=== PATIENT | female | born 1935 ===

== ENCOUNTER 2021-11-21 19:15 | Inpatient (IN) | payer MEDICARE, OTHER, SELFPAY ==
[2021-11-21] VITALS (11 sets, daily range): BP systolic 128–155; BP diastolic 68–90; PULSE 82–110; RESP 16–27; TEMP 37.1; O2SAT 92–96
--- NOTE | ~2021-11-21 | XR_ITS ---
EXAMINATION: XR chest 1V portable Exam Date/Time: 11/21/2021 19:57 CDT HISTORY: possible aspiration, unresponsive Comparison: 06/22/2013. RESULT: Lines, tubes, and devices: Cardiac valve replacement. Abandoned epicardial pacing wires.. Lungs and pleura: Right upper lung scarring. Left lower lobe coarse interstitial opacities, with vol ume loss and with tenting of the diaphragm. Otherwise clear. Cardiomediastinal silhouette: Stable cardiomediastinal silhouette. Other: No acute osseous or upper abdominal finding. IMPRESSION: Left lower lobe findings felt to be more consistent with atelectasis/scarring. Aspiration is not excl uded. Reviewed, dictated and finalized at location K. IMPRESSION: Left lower lobe findings felt to be more consistent with atelectasis/scarring. Aspiration is not excluded.
--- NOTE | ~2021-11-21 | XR_ITS ---
EXAMINATION: XR chest 1V portable DATE: 11/24/2021 13:03 INDICATION: Shortness of breath. TECHNIQUE: A single frontal view of the chest was obtained. COMPARISON: Chest single view 11/21/2021, CT abdomen and pelvis 11/22/2021 FINDINGS: Again seen is mild elevation of right left hemidiaphragm. There is mild atelectasis at left lung base. There is mild scarring in right midlung zone. No pleural effusion or pneumothorax. Cardio megaly is noted. There are changes of heart valve replacement. Retained epicardial pacer wires are no barbara. There are surgical clips in right chest. IMPRESSION: 1. Stable mild scarring in right midlung zone and mild atelectasis at left lung base. 2. Cardiomegaly. Reviewed, dictated and finalized at location A.
--- NOTE | ~2021-11-21 | CT_ITS ---
EXAMINATION: CT abdomen pelvis w con DATE: 11/22/2021 00:13 INDICATION: Urinary tract infection presenting with nausea and vomiting TECHNIQUE: Computed tomography (CT) of the abdomen and pelvis was performed with 75 mL Omnipaque-300 intravenous contrast. Automated exposure control and iterative reconstruction technique were employed . The dose-length product was 807.07 mGy-cm. COMPARISON: None FINDINGS: Mild bronchial dilation with wall thickening and patchy groundglass opacities in the bilateral lower lobes which could represent aspiration or pneumonia. Cardiomegaly with marked right atrial enlargemen t. Mitral valve repair. No pericardial or pleural effusion. Cholecystectomy clips the gallbladder fossa. Small amount of focal hepatic steatosis at the ligamentu m teres. A few splenic calcifications consistent with old granulomatous disease. Pancreas, bilateral adrenal glands and kidneys are normal. No urolithiasis, hydronephrosis or pyelonephritis. There is mi ld colonic diverticulosis with a sigmoid predominance. There is no adjacent inflammatory change to s uggest diverticulitis. There appears be some wall thickening at the anus, rectum and distal sigmoid c olon consistent with proctocolitis. Small bowel and appendix are normal. The uterus is not identified and has likely been surgically resected. There is mild wall thickening of the bladder which is decom pressed around a Schultz catheter. No free intraperitoneal gas or fluid. No pathologically enlarged abdominal or pelvic lymphadenopathy. Likely bipolar type right hip hemiarthroplasty. There is some heterotopic ossification about the rig ht hip and in the left obturator region. Multiple surgical clips at the groin bilaterally likely rela barbara to prior vascular surgery. 30 degrees thoracolumbar scoliosis with moderate spondylosis. Chronic appearing compression fractures at T12 and L2 with 20% anterior vertebral body height loss at the for black and 40% central vertebral body height loss at the latter. There are bridging osteophytes at multi ple levels in the lower thoracic spine, consistent with diffuse idiopathic skeletal hyperostosis (DIS H). IMPRESSION: 1. Bronchial wall thickening and patchy ground glass opacities in the bilateral lower lobes which cou ld represent aspiration or pneumonia. 2. Wall thickening at the anus, rectum and distal sigmoid colon consistent with a proctocolitis which could be infectious, inflammatory or less likely ischemic in etiology. 3. Bladder wall thickening which could be related to decompressed state with a Schultz catheter in plac e and/or cystitis given the history of urinary tract infection. 4. Thyromegaly with marked right atrial enlargement. Reviewed, dictated and finalized at location A. IMPRESSION: 1. Bronchial wall thickening and patchy ground glass opacities in the bilateral lower lobes which could represent aspiration or pneumonia. 2. Wall thickening at the anus, rectum and distal sigmoid colon consistent with a proctocolitis which could be infectious, inflammatory or less likely ischemi c in etiology. 3. Bladder wall thickening which could be related to decompressed state with a Schultz catheter in place and/or cystitis given the history of urinary tract infe ction. 4. Thyromegaly with marked right atrial enlargement.
--- NOTE | ~2021-11-21 | XR_ITS ---
EXAMINATION: XR barium swallow modified DATE: 11/25/2021 08:40 INDICATION: Aspiration pneumonia. TECHNIQUE: The patient was given barium-containing material of multiple consistencies to swallow by t marnie speech pathologist while I performed fluoroscopy. Fluoroscopy exposure time was 2.0 minutes. The n umber of fluoroscopy images saved to the PACS was 1. Dose-area product was 1.538 Gy-cm^2. FINDINGS: There was decreased lingual movement. There was reduced laryngeal elevation. There was vallecular res idue and laryngeal penetration. No aspiration. IMPRESSION: 1. Laryngeal penetration. No aspiration. 2. Please refer to the speech therapy report for recommendations. Reviewed, dictated and finalized at location A.
--- NOTE | ~2021-11-21 | CT_ITS ---
EXAMINATION: CT brain wo con DATE: 11/21/2021 21:40 INDICATION: unresponsive, AFIB on coumadin . TECHNIQUE: Computed tomography (CT) of the head was performed without intravenous contrast. The mA wa s adjusted according to patient size. Iterative reconstruction technique was employed. The dose-lengt h product was 605.33 mGy-cm. COMPARISON: 03/01/13 FINDINGS: No acute intracranial hemorrhage or extra-axial fluid collection. No hydrocephalus, mass, or herniation. No acute ischemic infarct. Unremarkable dural venous sinus attenuation. No acute osseous abnormality. The aerated spaces are clear. Severe atrophy and severe chronic white matter change. Atherosclerotic intracranial calcifications. IMPRESSION: No acute intracranial process. Reviewed, dictated and finalized at location K.
--- NOTE | 2021-11-21 19:53 | ECG_ITS ---
Measurements Intervals [place] Rate: 83 P: NH: 0 QRS: 21 QRSD: 89 T: 45 QT: 398 QTc: 470 Interpretive Statements ATRIAL FIBRILLATION VENTRICULAR PREMATURE COMPLEX INCOMPLETE RIGHT BUNDLE BRANCH BLOCK DELAYED PRECORDIAL R/S TRANSITION ABNORMAL ECG Electronically Signed On 11-22-2021 7:53:20 CDT by Michael Ward D.O.
--- NOTE | 2021-11-21 19:55 | ED.GENADULT ---
HPI - General Adult General Chief complaint: Shortness of Breath/Dyspnea <Michaelle Daniels PA-C - Last Filed: 11/22/21 01:16> Stated complaint: aspiration <JESSICA Snyder Last Filed: 11/22/21 01:16> Source: family, EMS and old records reviewed <JESSICA Snyder Last Filed: 11/22/21 01:16> Mode of arrival: EMS <JESSICA Snyder Last Filed: 11/22/21 01:16> Limitations: clinical condition <JESSICA Snyder Last Filed: 11/22/21 01:16> History of Present Illness HPI narrative: Patient is an 86-year-old female who presents to the ED via EMS with report of possible aspiration. Patient is a resident of [facility] and is bedbound at baseline. Daughter at bedside assisted in providing some information. Per daughter and jail report, patient was thought to have possibly aspirated on her liquid Ensure tonight at dinner. She began coughing after drinking it. EMS was called. Upon EMS arrival, she had 2 episodes of emesis. Patient is normally A&O x1 at baseline and is only sometimes able to talk. Daughter does report she typically recognizes her and will perk up and speak to her. Patient is currently unresponsive in ED bed, but is breathing on her own with SaO2 96% on RA. Patient does have a history of atrial fibrillation and is on Coumadin. Daughter denies any known falls. <JESSICA Snyder Last Filed: 11/22/21 01:16> Related Data Home medications: Home Medications Medication Instructions Recorded Confirmed acetaminophen 1,000 mg PO TID 11/22/21 11/22/21 atorvastatin 40 mg PO DAILY 11/22/21 11/22/21 baclofen 5 mg PO TID 11/22/21 11/22/21 cholecalciferol (vitamin D3) 125 mcg PO DAILY 11/22/21 11/22/21 docusate sodium [DOK] 100 mg PO BID 11/22/21 11/22/21 donepezil 10 mg PO HS 11/22/21 11/22/21 duloxetine 20 mg PO DAILY 11/22/21 11/22/21 loratadine 10 mg PO DAILY 11/22/21 11/22/21 melatonin 5 mg PO HS 11/22/21 11/22/21 memantine 10 mg PO BID 11/22/21 11/22/21 metoprolol tartrate 100 mg PO BID 11/22/21 11/22/21 nystatin 1 applic TOPICAL BID 11/22/21 11/22/21 omeprazole 20 mg PO DAILY 11/22/21 11/22/21 polyethylene glycol 3350 17 g PO DAILY 11/22/21 11/22/21 sennosides [senna] 8.6 mg PO DAILY 11/22/21 11/22/21 tramadol 50 mg PO Q8H PRN 11/22/21 11/22/21 vit A,C and K-rwbdoc-meningre 300 tablet PO DAILY 11/22/21 11/22/21 [I-Prem] warfarin 2.5 mg PO DAILY 11/22/21 11/22/21 <Michaelle Daniels PA-C - Last Filed: 11/22/21 01:16> Allergies/adverse reactions: Allergies Allergy/AdvReac Type Severity Reaction Status Date / Time adhesive tape Allergy Intermediate Itching Verified 06/19/13 18:55 amiodarone Allergy Verified 06/19/13 18:55 pravastatin Allergy Verified 06/19/13 18:55 <Michaelle Daniels PA-C - Last Filed: 11/22/21 01:16> Review of Systems Review of Systems: RESPIRATORY: Reports cough and possible aspiration. GASTROINTESTINAL: Reports vomiting. <Michaelle Daniels PA-C - Last Filed: 11/22/21 01:16> ROS unobtainable: Yes unobtainable due to medical condition <Michaelle Daniels PA-C - Last Filed: 11/22/21 01:16> [facility] Past Medical History Medical History: Medical History (Updated 11/22/21 @ 01:10 by Michaelle Daniels PA-C) Alzheimer's dementia Anxiety Atrial fibrillation CKD (chronic kidney disease) Contracture, left hand Depression GERD (gastroesophageal reflux disease) History of CVA (cerebrovascular accident) Hyperlipidemia Hypertension Iron deficiency anemia <Michaelle Daniels PA-C - Last Filed: 11/22/21 01:16> Surgical History Surgical History: Surgical History (Updated 11/21/21 @ 21:17 by Michaelle Daniels PA-C) History of prosthetic heart valve <Michaelle Daniels PA-C - Last Filed: 11/22/21 01:16> Social History Social History: Social History (Updated 11/21/21 @ 21:17 by Michaelle Daniels PA-C) Smoking status: Never smoker Alcohol intake: never Substance use: never Substance use typ
[2021-11-21 20:23] LABS: Basophils Percent Auto 0.3 % (0.2-1.2); Eosinophils Percent Auto 0.3 % (0-4.4); Hematocrit 46.5 % (37.0-47.0); Hemoglobin 14.7 g/dL (12.0-15.0); Immature Granulocyte Absolute 0.03 K/mm3 (0.00-0.031); Immature Granulocyte Percent A 0.4 % (0-0.5); Lymphocytes Absolute Auto 1.09 K/mm3 (0.9-3.2); Lymphocytes Percent Auto 14.9 % (18.3-44.2); Mean Corpuscular HGB Conc 31.6 g/dl (32-36); Mean Corpuscular Volume 101.1 fl (80-100); Mean Platelet Volume 12.4 fl (7.4-10.4); Monocytes Absolute Auto 0.4 K/mm3 (0.1-0.6); Monocytes Percent Auto 5.2 % (2.6-8.5); Neutrophils Absolute Auto 5.8 K/mm3 (1.3-6.7); Neutrophils Percent Auto 78.9 % (45.5-73.1); Platelet Count Result 166 k/mm3 (150-375); Red Cell Distribution Width 14.8 % (11.5-14.5); White Blood Count 7.3 K/mm3 (4.5-10.0)
[2021-11-21 20:32] LABS: Alveolar/Arterial O2 Gradient 37.3 mmHg; Base Excess ABG -0.2 mEq/l (+/-2.0); Fractional Inspired Oxygen 21 %; HCO3 ABG 24.5 mEq/l (22.0-26.0); Oxygen Content ABG 19.6 %vol (16.0-22.0); Oxygen Saturation ABG 92.5 % (95.0-100.0); Oxyhemoglobin 91.8 % THb (90.0-100.0); PCO2 ABG 40.5 mmHg (35.0-45.0); PO2 ABG 63.9 mmHg (80.0-100.0); PO2 FiO2 Ratio Arterial Blood 3.04 %; Total Hemoglobin 15.2 g/dL (12.0-18.0)
[2021-11-21 20:33] LABS: Device ROOM AIR; Modified Allen's Test Unable to perform; Site Drawn RIGHT RADIAL
[2021-11-21 20:35] LABS: Alanine Aminotransferase 16 U/L (6-35); Alkaline Phosphatase 129 U/L (38-126); Anion Gap 4 mmol/L (8-16); Aspartate Amino Transferase 42 U/L (14-36); Bilirubin,Total 0.6 mg/dL (0.2-1.3); Blood Urea Nitrogen 25 mg/dL (7-17); Calcium 9.3 mg/dL (8.4-10.2); Carbon Dioxide 33 mmol/L (22-30); Chloride 102 mmol/L (98-107); Estimated Glomerular Filt Rate 59; Glucose 130 mg/dL (65-110); INR 3.7; Potassium 4.3 mmol/L (3.4-5.0); Prothrombin Time 35.5 Seconds (11.1-14.7); Sodium 139 mmol/L (137-145)
[2021-11-21 20:36] LABS: Partial Thromboplastin Time 53.9 SECONDS (22.3-36.8)
[2021-11-21 20:47] LABS: NT Pro B Type Natriuretic Pept 1490 pg/mL (5-100); Troponin I 0.013 ng/mL (0.000-0.034)
[2021-11-21 21:44] LABS: Lactic Acid Reflex 1.8 mmol/L (0.7-2.0)
[2021-11-21 22:27] LABS: Appearance Urine Cloudy (Clear); Bilirubin Urine Negative (Negative); Blood Urine 3+ (Negative); Color Urine Yellow (Yellow); Glucose Urine UA Negative (Negative); Ketones Urine Negative (Negative); Leukocyte Esterase Ur 1+ LEU/UL (Negative); Nitrate Urine Negative (Negative); Protein Urine 2+ mg/dL (Negative); Specific Grav Ur >= 1.030 (1.001-1.035); pH Urine 5.5 (5.0-9.0)
[2021-11-21 22:34] LABS: Mucus Urine Moderate /lpf; RBC Urine >75 /hpf (0-2); Squamous Epithelial Cell Urine Many /hpf (Few); WBC Clumps Urine Present /HPF; WBC Urine >75 /hpf
[2021-11-21 22:53] LABS: Add Urine Microscopic? YES
[2021-11-21 23:05] LABS: Glucose Point of Care 161 mg/dl (65-105)
--- NOTE | 2021-11-21 23:40 | PM.IMHP ---
H&P: HPI History of Present Illness Date/Time: 11/21/21 23:40 Chief Complaint: Altered mental status. Narrative: This is an 86-year-old female who resides at alf facility patient with past medical history significant for dementia, gastroesophageal reflux disease, chronic constipation, atrial fibrillation, rate controlled, anticoagulated, was brought to the emergency room for evaluation after concerns for her altered mental status been unresponsive a total change from her usual self, most of the history has been obtained from daughter who is at bedside. According to daughter patient had several episodes of nausea and vomiting with choking, and was not responding to her. Patient had been in her usual state of health up until this moment. Preliminary workup was significant for urine analysis with numerous WBCs present, chest x-ray with left lower lobe infiltrate. Patient is being admitted for further did evaluation management and treatment. Review of Systems Review of Systems: ROS unobtainable: Yes unobtainable due to medical condition and unobtainable due to mental status (Obtundation) PMFSH Past Medical History Medical History (Updated 11/22/21 @ 01:10 by Michaelle Daniels PA-C) Alzheimer's dementia Anxiety Atrial fibrillation CKD (chronic kidney disease) Contracture, left hand Depression GERD (gastroesophageal reflux disease) History of CVA (cerebrovascular accident) Hyperlipidemia Hypertension Iron deficiency anemia Surgical History Surgical History (Updated 11/21/21 @ 21:17 by Michaelle Daniels PA-C) History of prosthetic heart valve Social History Social History (Updated 11/21/21 @ 21:17 by Michaelle Daniels PA-C) Smoking status: Never smoker Alcohol intake: never Substance use: never Substance use type: does not use Living arrangements: alf Spiritual care concerns: No Meds Home Medications and Allergies Home Medications Medication Instructions Recorded Confirmed Type acetaminophen 1,000 mg PO TID 11/22/21 11/22/21 History atorvastatin 40 mg PO DAILY 11/22/21 11/22/21 History baclofen 5 mg PO TID 11/22/21 11/22/21 History cholecalciferol (vitamin D3) 125 mcg PO DAILY 11/22/21 11/22/21 History docusate sodium [DOK] 100 mg PO BID 11/22/21 11/22/21 History donepezil 10 mg PO HS 11/22/21 11/22/21 History duloxetine 20 mg PO DAILY 11/22/21 11/22/21 History loratadine 10 mg PO DAILY 11/22/21 11/22/21 History melatonin 5 mg PO HS 11/22/21 11/22/21 History memantine 10 mg PO BID 11/22/21 11/22/21 History metoprolol tartrate 100 mg PO BID 11/22/21 11/22/21 History nystatin 1 applic TOPICAL BID 11/22/21 11/22/21 History omeprazole 20 mg PO DAILY 11/22/21 11/22/21 History polyethylene glycol 3350 17 g PO DAILY 11/22/21 11/22/21 History sennosides [senna] 8.6 mg PO DAILY 11/22/21 11/22/21 History tramadol 50 mg PO Q8H PRN 11/22/21 11/22/21 History vit A,C and H-ovevwz-dswdojlr 300 tablet PO DAILY 11/22/21 11/22/21 History [I-Prem] warfarin 2.5 mg PO DAILY 11/22/21 11/22/21 History Allergies Allergy/AdvReac Type Severity Reaction Status Date / Time adhesive tape Allergy Intermediate Itching Verified 06/19/13 18:55 amiodarone Allergy Verified 06/19/13 18:55 pravastatin Allergy Verified 06/19/13 18:55 Vital Signs Vital Signs - 24 hr 11/21/21 19:32 11/21/21 19:38 11/21/21 21:32 Temperature 98.7 F Pulse Rate 85 82 Respiratory Rate 19 16 Blood Pressure 155/90 H 139/74 Pulse Oximetry 95 95 96 Exam Const: General: comfortable, no acute distress, well developed, ill appearing acutely and patient obtunded Nutritional Appearance: average body habitus Orientation/consciousness: patient obtunded HENMT: Head: normal to inspection, normocephalic and atraumatic Ears: hearing grossly normal bilaterally General nose exam: Normal external nose present Face and sinus: normal facial exam Mouth: Yes dry mucous membranes Eyes: General: appearance normal, both eyes and all r
[2021-11-22] VITALS (13 sets, daily range): BP systolic 106–161; BP diastolic 57–99; PULSE 72–114; RESP 12–28; TEMP 36.5–37.5; O2SAT 90–100
[2021-11-22 00:56] LABS: SARS-CoV-2 RNA PCR Negative
--- NOTE | 2021-11-22 01:35 | PC.NURSE ---
Before patient was taken up to the floor she was cleaned up by this RN and Chetan guerra
--- NOTE | 2021-11-22 01:40 | PC.NURSE ---
THis RN was just informed about getting a room for patient at 0138 [facility] sent immediately.
[2021-11-22] MEDS: ONDANSETRON INJ 4 MG/2 ML VIAL IV PUSH (01:50)
--- NOTE | 2021-11-22 02:01 | PC.NURSE ---
This RN sent patient upstairs with fluids still running.
--- NOTE | 2021-11-22 02:21 | PC.NURSE ---
This patient, Anjali Huffman, was admitted to [facility] Surg Room 332-01. Patient/family oriented to hospital policies and general routines including ID bracelet, bed and alarms, visiting hours, pain management, procedures, bathroom and other care routines, personal items, smoking policy, room service/diet, and visiting hours. Information on how to activate the Rapid Response Team has been discussed. Patient/Family are encouraged to report perceived risks to care and to ask questions if they do not understand what they are told or what they should do.
--- NOTE | 2021-11-22 13:16 | PM.IMPN ---
Progress Note: A&P Assessment and Plan (1) Urinary tract infection: Qualifiers: Hematuria presence: with hematuria Urinary tract infection type: acute cystitis Qualified Code(s): N30.01 - Acute cystitis with hematuria Code(s): N39.0 - Urinary tract infection, site not specified Status: Acute Assessment and Plan: Patient has been started on broad-spectrum antibiotics. Await cultures Deescalate antibiotics as needed Supportive care (2) Altered mental status: Qualifiers: Altered mental status type: unspecified Qualified Code(s): R41.82 - Altered mental status, unspecified Code(s): R41.82 - Altered mental status, unspecified Status: Acute Assessment and Plan: CT head is negative Likely secondary to urinary tract infection/pneumonia/colitis ABG without hypercapnia Lactate normal Supportive care Continue to monitor (3) Aspiration into lower respiratory tract: Qualifiers: Encounter type: initial encounter Qualified Code(s): T17.800A - Unspecified foreign body in other parts of respiratory tract causing asphyxiation, initial encounter Code(s): T17.800A - Unspecified foreign body in other parts of respiratory tract causing asphyxiation, initial encounter Status: Acute Assessment and Plan: Patient is on broad-spectrum antibiotics CT abdomen and pelvis revealed peribronchial thickening and ground-glass opacities in the lower lobe Blood cultures in progress On vancomycin and Zosyn (4) GERD (gastroesophageal reflux disease): Code(s): K21.9 - Gastro-esophageal reflux disease without esophagitis Status: Acute Assessment and Plan: PPI as needed (5) CKD (chronic kidney disease): Code(s): N18.9 - Chronic kidney disease, unspecified Status: Acute Assessment and Plan: Continue to monitor (6) Atrial fibrillation: Code(s): I48.91 - Unspecified atrial fibrillation Status: Acute Assessment and Plan: Rate controlled and anticoagulated INR 3.7 (7) Alzheimer's dementia: Code(s): G30.9 - Alzheimer's disease, unspecified; F02.80 - Dementia in other diseases classified elsewhere without behavioral disturbance Status: Acute Assessment and Plan: Continue memantine (8) Colitis: Code(s): K52.9 - Noninfective gastroenteritis and colitis, unspecified Status: Acute Assessment and Plan: Involving descending and sigmoid colon infectious or inflammatory On IV antibiotics Subjective Date/time seen: 11/22/21 13:16 Interval history: HPI:This is an 86-year-old female who resides at assisted facility patient with past medical history significant for dementia, gastroesophageal reflux disease, chronic constipation, atrial fibrillation, rate controlled, anticoagulated, was brought to the emergency room for evaluation after concerns for her altered mental status been unresponsive a total change from her usual self, most of the history has been obtained from daughter who is at bedside. According to daughter patient had several episodes of nausea and vomiting with choking, and was not responding to her. Patient had been in her usual state of health up until this moment. Preliminary workup was significant for urine analysis with numerous WBCs present, chest x-ray with left lower lobe infiltrate. Patient is being admitted for further did evaluation management and treatment. 11/03 08/25 patient family at bedside. Patient lethargic. Opens her eyes on verbal commands. Not able to follow commands. She smiled to her family which is improvement to some extent. She choked on her drink yesterday evening. Remains afebrile Review of Systems Review of Systems: ROS unobtainable: Yes unobtainable due to medical condition Exam Narrative: GENERAL: The patient is sin built, lethargic, minimally responsive not in acute distress HEENT: Nonicteric sclerae, PERRLA, EOMI. Oropharynx cl
--- NOTE | 2021-11-22 14:43 | PCSTNOTE ---
Attempted Bedside Swallow Evaluation, patient would not arouse. Family was present, communicated that the patient typically consumes a diet of mildly thick liquids (level 2) and either minced and moist or puree (level 4 or 5) at her SNF. History includes 1 massive stroke, and multiple mini strokes per family report. Family is agreeable to a MBS to determine swallow function if deemed necessary after bedside swallow evaluation. Will attempt tomorrow.
[2021-11-22] MEDS: SODIUM CHLORIDE 0.9% IV 1,000 ML 75 ML IV CONT (15:01)
[2021-11-23] VITALS (8 sets, daily range): BP systolic 123–167; BP diastolic 90–95; PULSE 62–115; RESP 17–20; TEMP 36.3–37.1; O2SAT 91–96
[2021-11-23] MEDS: SODIUM CHLORIDE 0.9% IV 1,000 ML 75 ML IV CONT ×2 (02:55→17:24)
[2021-11-23 07:49] LABS: Basophils Percent Auto 0.4 % (0.2-1.2); Eosinophils Absolute Auto 0.3 K/mm3 (0-0.3); Eosinophils Percent Auto 2.7 % (0-4.4); Hemoglobin 13.6 g/dL (12.0-15.0); Immature Granulocyte Absolute 0.04 K/mm3 (0.00-0.031); Immature Granulocyte Percent A 0.4 % (0-0.5); Lymphocytes Percent Auto 23.6 % (18.3-44.2); Mean Corpuscular HGB Conc 31.6 g/dl (32-36); Mean Corpuscular Hemoglobin 32.1 pg (26-34); Mean Corpuscular Volume 101.4 fl (80-100); Mean Platelet Volume 11.9 fl (7.4-10.4); Monocytes Absolute Auto 1.2 K/mm3 (0.1-0.6); Monocytes Percent Auto 12.2 % (2.6-8.5); Neutrophils Absolute Auto 5.9 K/mm3 (1.3-6.7); Neutrophils Percent Auto 60.7 % (45.5-73.1); Platelet Count Result 162 k/mm3 (150-375); Red Blood Count 4.24 M/mm3 (4.2-5.4); Red Cell Distribution Width 14.8 % (11.5-14.5); White Blood Count 9.7 K/mm3 (4.5-10.0)
[2021-11-23 07:59] LABS: Alanine Aminotransferase 13 U/L (6-35); Albumin Level 3.5 g/dL (3.5-5.1); Alkaline Phosphatase 103 U/L (38-126); Anion Gap 4 mmol/L (8-16); Aspartate Amino Transferase 30 U/L (14-36); Bilirubin,Total 0.8 mg/dL (0.2-1.3); Blood Urea Nitrogen 22 mg/dL (7-17); Carbon Dioxide 29 mmol/L (22-30); Chloride 105 mmol/L (98-107); Estimated Glomerular Filt Rate 59; Glucose 95 mg/dL (65-110); Magnesium 2.2 mg/dL (1.6-2.3); Potassium 3.9 mmol/L (3.4-5.0); Sodium 138 mmol/L (137-145)
[2021-11-23 08:45] LABS: INR 4.4; Prothrombin Time 40.7 Seconds (11.1-14.7)
--- NOTE | 2021-11-23 12:09 | PCSTNOTE ---
Please refer to the Bedside Swallow Evaluation in the EMR. Please note, silent aspiration cannot be ruled out at bedside.
--- NOTE | 2021-11-23 12:32 | PM.IMPN ---
Progress Note: A&P Assessment and Plan (1) Urinary tract infection: Qualifiers: Hematuria presence: with hematuria Urinary tract infection type: acute cystitis Qualified Code(s): N30.01 - Acute cystitis with hematuria Code(s): N39.0 - Urinary tract infection, site not specified Status: Acute Assessment and Plan: Patient has been started on broad-spectrum antibiotics. Await cultures Deescalate antibiotics as needed Supportive care (2) Altered mental status: Qualifiers: Altered mental status type: unspecified Qualified Code(s): R41.82 - Altered mental status, unspecified Code(s): R41.82 - Altered mental status, unspecified Status: Acute Assessment and Plan: CT head is negative Likely secondary to urinary tract infection/pneumonia/colitis ABG without hypercapnia Lactate normal Supportive care Continue to monitor. Slowly improved (3) Aspiration into lower respiratory tract: Qualifiers: Encounter type: initial encounter Qualified Code(s): T17.800A - Unspecified foreign body in other parts of respiratory tract causing asphyxiation, initial encounter Code(s): T17.800A - Unspecified foreign body in other parts of respiratory tract causing asphyxiation, initial encounter Status: Acute Assessment and Plan: Patient is on broad-spectrum antibiotics CT abdomen and pelvis revealed peribronchial thickening and ground-glass opacities in the lower lobe Blood cultures in progress On vancomycin and Zosyn (4) GERD (gastroesophageal reflux disease): Code(s): K21.9 - Gastro-esophageal reflux disease without esophagitis Status: Acute Assessment and Plan: PPI as needed (5) CKD (chronic kidney disease): Code(s): N18.9 - Chronic kidney disease, unspecified Status: Acute Assessment and Plan: Continue to monitor (6) Atrial fibrillation: Code(s): I48.91 - Unspecified atrial fibrillation Status: Acute Assessment and Plan: Rate controlled and anticoagulated INR 3.7 on admission Under still at 4.4 continue to hold Coumadin (7) Alzheimer's dementia: Code(s): G30.9 - Alzheimer's disease, unspecified; F02.80 - Dementia in other diseases classified elsewhere without behavioral disturbance Status: Acute Assessment and Plan: Continue memantine (8) Colitis: Code(s): K52.9 - Noninfective gastroenteritis and colitis, unspecified Status: Acute Assessment and Plan: Involving descending and sigmoid colon infectious or inflammatory On IV antibiotics (9) Dysphagia: Code(s): R13.10 - Dysphagia, unspecified Status: Acute Assessment and Plan: speech therapy evaluated. Aspiration episode prior to admission Subjective Date/time seen: 11/23/21 12:32 Interval history: HPI:This is an 86-year-old female who resides at [facility] facility patient with past medical history significant for dementia, gastroesophageal reflux disease, chronic constipation, atrial fibrillation, rate controlled, anticoagulated, was brought to the emergency room for evaluation after concerns for her altered mental status been unresponsive a total change from her usual self, most of the history has been obtained from daughter who is at bedside. According to daughter patient had several episodes of nausea and vomiting with choking, and was not responding to her. Patient had been in her usual state of health up until this moment. Preliminary workup was significant for urine analysis with numerous WBCs present, chest x-ray with left lower lobe infiltrate. Patient is being admitted for further did evaluation management and treatment. patient family at bedside. Patient lethargic. Opens her eyes on verbal commands. Not able to follow commands. She smiled to her family which is improvement to some extent. She choked on her drink yesterday evening. Remains afebrile 05
[2021-11-23] MEDS: polyethylene glycoL 3350 17 GM POWD.PACK PO (15:38)
[2021-11-24] VITALS (10 sets, daily range): BP systolic 147–157; BP diastolic 90–107; PULSE 80–120; RESP 18–26; TEMP 36.7–37.1; O2SAT 95–97
[2021-11-24] MEDS: SODIUM CHLORIDE 0.9% IV 1,000 ML 75 ML IV CONT (08:11)
[2021-11-24 08:18] LABS: Basophils Absolute Auto 0.1 K/mm3 (0.0-0.1); Basophils Percent Auto 0.4 % (0.2-1.2); Eosinophils Absolute Auto 0.6 K/mm3 (0-0.3); Eosinophils Percent Auto 5.8 % (0-4.4); Hematocrit 42.9 % (37.0-47.0); Hemoglobin 13.1 g/dL (12.0-15.0); Immature Granulocyte Absolute 0.04 K/mm3 (0.00-0.031); Immature Granulocyte Percent A 0.4 % (0-0.5); Lymphocytes Absolute Auto 2.51 K/mm3 (0.9-3.2); Lymphocytes Percent Auto 22.6 % (18.3-44.2); Mean Corpuscular HGB Conc 30.5 g/dl (32-36); Mean Corpuscular Hemoglobin 31.6 pg (26-34); Mean Corpuscular Volume 103.6 fl (80-100); Mean Platelet Volume 11.9 fl (7.4-10.4); Monocytes Absolute Auto 1.2 K/mm3 (0.1-0.6); Monocytes Percent Auto 11.2 % (2.6-8.5); Neutrophils Absolute Auto 6.6 K/mm3 (1.3-6.7); Neutrophils Percent Auto 59.6 % (45.5-73.1); Platelet Count Result 170 k/mm3 (150-375); Red Blood Count 4.14 M/mm3 (4.2-5.4); Red Cell Distribution Width 14.6 % (11.5-14.5); White Blood Count 11.1 K/mm3 (4.5-10.0)
[2021-11-24 08:24] LABS: Chloride 104 mmol/L (98-107)
[2021-11-24 08:28] LABS: INR 3.5; Prothrombin Time 34.1 Seconds (11.1-14.7)
[2021-11-24 08:29] LABS: Alanine Aminotransferase 14 U/L (6-35); Albumin Level 3.7 g/dL (3.5-5.1); Alkaline Phosphatase 111 U/L (38-126); Anion Gap 8 mmol/L (8-16); Aspartate Amino Transferase 36 U/L (14-36); Blood Urea Nitrogen 17 mg/dL (7-17); Carbon Dioxide 27 mmol/L (22-30); Estimated Glomerular Filt Rate > 60; Glucose 72 mg/dL (65-110); Magnesium 1.9 mg/dL (1.6-2.3); Potassium 3.1 mmol/L (3.4-5.0); Sodium 139 mmol/L (137-145)
--- NOTE | 2021-11-24 11:45 | PM.IMPN ---
Progress Note: A&P Assessment and Plan (1) Urinary tract infection: Qualifiers: Hematuria presence: with hematuria Urinary tract infection type: acute cystitis Qualified Code(s): N30.01 - Acute cystitis with hematuria Code(s): N39.0 - Urinary tract infection, site not specified Status: Acute Assessment and Plan: Patient has been started on broad-spectrum antibiotics vancomycin and Zosyn Blood culture negative x2 Urine culture reviewed Deescalate antibiotics as needed Supportive care (2) Altered mental status: Qualifiers: Altered mental status type: unspecified Qualified Code(s): R41.82 - Altered mental status, unspecified Code(s): R41.82 - Altered mental status, unspecified Status: Acute Assessment and Plan: CT head is negative Likely secondary to urinary tract infection/pneumonia/colitis ABG without hypercapnia Lactate normal Supportive care Continue to monitor. Slowly improved (3) Aspiration into lower respiratory tract: Qualifiers: Encounter type: initial encounter Qualified Code(s): T17.800A - Unspecified foreign body in other parts of respiratory tract causing asphyxiation, initial encounter Code(s): T17.800A - Unspecified foreign body in other parts of respiratory tract causing asphyxiation, initial encounter Status: Acute Assessment and Plan: Patient is on broad-spectrum antibiotics CT abdomen and pelvis revealed peribronchial thickening and ground-glass opacities in the lower lobe Blood cultures in progress On vancomycin and Zosyn Recheck chest x-ray today Add Laquita guillen scheduled Speech therapy following Will do MBS (4) GERD (gastroesophageal reflux disease): Code(s): K21.9 - Gastro-esophageal reflux disease without esophagitis Status: Acute Assessment and Plan: PPI as needed (5) CKD (chronic kidney disease): Code(s): N18.9 - Chronic kidney disease, unspecified Status: Acute Assessment and Plan: Continue to monitor (6) Atrial fibrillation: Code(s): I48.91 - Unspecified atrial fibrillation Status: Acute Assessment and Plan: Rate controlled and anticoagulated INR 3.7 on admission INR down to 3.5 will restart Coumadin today and continue to monitor (7) Alzheimer's dementia: Code(s): G30.9 - Alzheimer's disease, unspecified; F02.80 - Dementia in other diseases classified elsewhere without behavioral disturbance Status: Acute Assessment and Plan: Continue memantine (8) Colitis: Code(s): K52.9 - Noninfective gastroenteritis and colitis, unspecified Status: Acute Assessment and Plan: Involving descending and sigmoid colon infectious or inflammatory On IV antibiotics (9) Dysphagia: Code(s): R13.10 - Dysphagia, unspecified Status: Acute Assessment and Plan: speech therapy evaluated. Aspiration episode prior to admission Order MBS Subjective Date/time seen: 11/24/21 11:45 Interval history: HPI:This is an 86-year-old female who resides at [facility] patient with past medical history significant for dementia, gastroesophageal reflux disease, chronic constipation, atrial fibrillation, rate controlled, anticoagulated, was brought to the emergency room for evaluation after concerns for her altered mental status been unresponsive a total change from her usual self, most of the history has been obtained from daughter who is at bedside. According to daughter patient had several episodes of nausea and vomiting with choking, and was not responding to her. Patient had been in her usual state of health up until this moment. Preliminary workup was significant for urine analysis with numerous WBCs present, chest x-ray with left lower lobe infiltrate. Patient is being admitted for further did evaluation management and treatment. patient family at bedside. Patient lethargic. Opens her
--- NOTE | 2021-11-24 14:15 | PCRCNOTE ---
Window of time for treatment . Will continue tx as scheduled.
[2021-11-24] MEDS: POTASSIUM CHLORIDE 20 MEQ PACKET (FOR LIQUID) 40 MEQ PO (14:33)
[2021-11-24] MEDS: IPRATROPIUM BR 0.02% INH SOLN 0.5 MG/2.5 ML VIAL INHALATION ×2 (15:07→20:03)
[2021-11-24] MEDS: ALBUTEROL SULFATE NEB 2.5 MG/3 ML INH INHALATION ×2 (15:07→20:03)
[2021-11-24] MEDS: DONEPEZIL HCL 10 MG TABLET PO (22:21)
[2021-11-24] MEDS: WARFARIN (*PBKC) 2 MG TABLET PO (22:21)
[2021-11-24] MEDS: MEMANTINE 10 MG TABLET PO (22:22)
[2021-11-24] MEDS: MELATONIN 5 MG TABLET PO (22:22)
[2021-11-24] MEDS: METOPROLOL TARTRATE 50 MG TAB 100 MG PO (22:22)
[2021-11-24] MEDS: TOLNAFTATE 1% POWDER 45 GM BTL 1 APPLIC TOPICAL (22:23)
[2021-11-25] VITALS (14 sets, daily range): BP systolic 128–149; BP diastolic 74–83; PULSE 80–94; RESP 16–18; TEMP 36.3–37.7; O2SAT 93–97
[2021-11-25] MEDS: IPRATROPIUM BR 0.02% INH SOLN 0.5 MG/2.5 ML VIAL INHALATION ×5 (03:07→20:51)
[2021-11-25] MEDS: ALBUTEROL SULFATE NEB 2.5 MG/3 ML INH INHALATION ×5 (03:07→20:51)
[2021-11-25 08:02] LABS: Basophils Percent Auto 0.3 % (0.2-1.2); Eosinophils Absolute Auto 0.3 K/mm3 (0-0.3); Eosinophils Percent Auto 3.5 % (0-4.4); Hematocrit 37.8 % (37.0-47.0); Hemoglobin 12.5 g/dL (12.0-15.0); Immature Granulocyte Absolute 0.03 K/mm3 (0.00-0.031); Immature Granulocyte Percent A 0.3 % (0-0.5); Lymphocytes Absolute Auto 2.14 K/mm3 (0.9-3.2); Lymphocytes Percent Auto 23.9 % (18.3-44.2); Mean Corpuscular HGB Conc 33.1 g/dl (32-36); Mean Corpuscular Hemoglobin 32.2 pg (26-34); Mean Corpuscular Volume 97.4 fl (80-100); Mean Platelet Volume 11.8 fl (7.4-10.4); Monocytes Absolute Auto 1.2 K/mm3 (0.1-0.6); Monocytes Percent Auto 12.9 % (2.6-8.5); Neutrophils Absolute Auto 5.3 K/mm3 (1.3-6.7); Neutrophils Percent Auto 59.1 % (45.5-73.1); Platelet Count Result 189 k/mm3 (150-375); Red Blood Count 3.88 M/mm3 (4.2-5.4); Red Cell Distribution Width 14.6 % (11.5-14.5)
[2021-11-25 08:18] LABS: INR 2.2; Prothrombin Time 23.7 Seconds (11.1-14.7)
[2021-11-25 08:21] LABS: Alanine Aminotransferase 13 U/L (6-35); Albumin Level 3.4 g/dL (3.5-5.1); Alkaline Phosphatase 100 U/L (38-126); Anion Gap 3 mmol/L (8-16); Aspartate Amino Transferase 44 U/L (14-36); Bilirubin,Total 1.3 mg/dL (0.2-1.3); Blood Urea Nitrogen 12 mg/dL (7-17); Calcium 8.6 mg/dL (8.4-10.2); Carbon Dioxide 28 mmol/L (22-30); Chloride 107 mmol/L (98-107); Estimated Glomerular Filt Rate > 60; Glucose 91 mg/dL (65-110); Potassium 3.5 mmol/L (3.4-5.0); Sodium 138 mmol/L (137-145)
[2021-11-25] MEDS: SODIUM CHLORIDE 0.9% IV 1,000 ML 40 ML IV CONT (08:45)
[2021-11-25] MEDS: METOPROLOL TARTRATE 50 MG TAB 100 MG PO ×2 (08:46→22:33)
[2021-11-25] MEDS: ATORVASTATIN 40 MG TABLET PO (08:46)
[2021-11-25] MEDS: CHOLECALCIFEROL 1,000 UNITS TABLET 5000 UNITS PO (08:46)
[2021-11-25] MEDS: ACETAMINOPHEN 500 MG TABLET 1000 MG PO ×3 (08:46→16:02)
[2021-11-25] MEDS: SENNOSIDES 8.6 MG TABLET PO (08:46)
[2021-11-25] MEDS: DULoxetine HCL 20 MG CAPSULE.DR PO (08:47)
[2021-11-25] MEDS: MEMANTINE 10 MG TABLET PO ×2 (08:47→22:33)
[2021-11-25] MEDS: OPTI-GEN TAB 1 TABLET PO (08:47)
[2021-11-25] MEDS: DOCUSATE SODIUM 100 MG CAPSULE PO (08:47)
[2021-11-25] MEDS: TOLNAFTATE 1% POWDER 45 GM BTL 1 APPLIC TOPICAL ×2 (08:48→22:38)
[2021-11-25] MEDS: LORATADINE 10 MG TABLET PO (08:48)
[2021-11-25] MEDS: PANTOPRAZOLE 40 MG TABLET PO (08:48)
[2021-11-25] MEDS: polyethylene glycoL 3350 17 GM POWD.PACK PO (08:48)
[2021-11-25 08:59] LABS: Vancomycin Trough < 5.0 ug/mL (10.0-20.0)
--- NOTE | 2021-11-25 09:17 | PCSTNOTE ---
Please refer to the Modified Barium Swallow Evaluation in the EMR.
--- NOTE | 2021-11-25 11:19 | PM.IMPN ---
Progress Note: A&P Assessment and Plan (1) Urinary tract infection: Qualifiers: Hematuria presence: with hematuria Urinary tract infection type: acute cystitis Qualified Code(s): N30.01 - Acute cystitis with hematuria Code(s): N39.0 - Urinary tract infection, site not specified Status: Acute Assessment and Plan: Patient has been started on broad-spectrum antibiotics vancomycin and Zosyn Blood culture negative x2 Urine culture with mixed shar and no speciation (2) Altered mental status: Qualifiers: Altered mental status type: unspecified Qualified Code(s): R41.82 - Altered mental status, unspecified Code(s): R41.82 - Altered mental status, unspecified Status: Acute Assessment and Plan: CT head is negative Likely secondary to urinary tract infection/pneumonia/colitis ABG without hypercapnia Lactate normal Supportive care Continue to monitor. More awake and alert (3) Aspiration into lower respiratory tract: Qualifiers: Encounter type: initial encounter Qualified Code(s): T17.800A - Unspecified foreign body in other parts of respiratory tract causing asphyxiation, initial encounter Code(s): T17.800A - Unspecified foreign body in other parts of respiratory tract causing asphyxiation, initial encounter Status: Acute Assessment and Plan: Patient is on broad-spectrum antibiotics CT abdomen and pelvis revealed peribronchial thickening and ground-glass opacities in the lower lobe Blood cultures in progress On vancomycin and Zosyn Recheck chest x-ray today Add Laquita ackermant scheduled Speech therapy following Will do MBS 11/24/21 modified barium study completed with the recommendation of minced moist meat/level 5 and mildly thickened liquid/level 2 - diet order changed Ordered RT induced sputum culture to help guide outpatient antibiotic selection Ordered Chest Physiotherapy due to weak cough and secretion clearance (4) GERD (gastroesophageal reflux disease): Code(s): K21.9 - Gastro-esophageal reflux disease without esophagitis Status: Acute Assessment and Plan: PPI as needed (5) CKD (chronic kidney disease): Code(s): N18.9 - Chronic kidney disease, unspecified Status: Acute Assessment and Plan: Continue to monitor (6) Atrial fibrillation: Code(s): I48.91 - Unspecified atrial fibrillation Status: Acute Assessment and Plan: Rate controlled and anticoagulated INR 3.7 on admission INR down to 3.5 will restart Coumadin today and continue to monitor INR 2.2 on 11/24/21 continue warfarin and check INR in AM (7) Alzheimer's dementia: Code(s): G30.9 - Alzheimer's disease, unspecified; F02.80 - Dementia in other diseases classified elsewhere without behavioral disturbance Status: Acute Assessment and Plan: Continue memantine (8) Colitis: Code(s): K52.9 - Noninfective gastroenteritis and colitis, unspecified Status: Acute Assessment and Plan: Involving descending and sigmoid colon infectious or inflammatory On IV antibiotics (9) Dysphagia: Code(s): R13.10 - Dysphagia, unspecified Status: Acute Assessment and Plan: speech therapy evaluated. Aspiration episode prior to admission Order MBS MBS completed and diet changed Subjective Date/time seen: Date of Service 11/25/21 1113 Patient says she feels better. Daughter is at bedside with many questions. Daughter says patient is more awake and alert today. Warfarin restarted yesterday. Review of Systems Cardiovascular: Cardiovascular: Denies chest pain Respiratory: Respiratory: Reports cough Exam Narrative: GENERAL: NAD, cooperative HEENT: Normocephalic, atraumatic, anicteric, nares clear, oropharynx moist and clear NECK: Supple CV: 2/6 AMADOU w/ radiation to the carotids RESP: Very weak cough with bilateral crackles at the base EXTREMITIES: Warm and well
[2021-11-25] MEDS: POTASSIUM CHLORIDE 20 MEQ PACKET (FOR LIQUID) 40 MEQ PO (12:01)
[2021-11-25] MEDS: WARFARIN (*PBKC) 2.5 MG TABLET PO (16:03)
[2021-11-25] MEDS: MELATONIN 5 MG TABLET PO (22:33)
[2021-11-25] MEDS: DONEPEZIL HCL 10 MG TABLET PO (22:33)
[2021-11-26] VITALS (16 sets, daily range): BP systolic 121–155; BP diastolic 64–90; PULSE 70–88; RESP 16; TEMP 36.2–36.5; O2SAT 95–100; BMI 24.0
[2021-11-26] MEDS: ALBUTEROL SULFATE NEB 2.5 MG/3 ML INH INHALATION ×5 (00:38→20:46)
[2021-11-26] MEDS: IPRATROPIUM BR 0.02% INH SOLN 0.5 MG/2.5 ML VIAL INHALATION ×5 (00:38→20:46)
[2021-11-26] MEDS: SODIUM CHLOR 3% 15 ML NEB (RESPIRATORY THERAPY) 6 ML INHALATION (04:57)
[2021-11-26 06:21] LABS: Basophils Percent Auto 0.4 % (0.2-1.2); Eosinophils Absolute Auto 0.6 K/mm3 (0-0.3); Eosinophils Percent Auto 6.2 % (0-4.4); Hematocrit 38.2 % (37.0-47.0); Hemoglobin 12.3 g/dL (12.0-15.0); Immature Granulocyte Absolute 0.04 K/mm3 (0.00-0.031); Immature Granulocyte Percent A 0.4 % (0-0.5); Lymphocytes Absolute Auto 2.24 K/mm3 (0.9-3.2); Lymphocytes Percent Auto 23.7 % (18.3-44.2); Mean Corpuscular HGB Conc 32.2 g/dl (32-36); Mean Corpuscular Hemoglobin 31.9 pg (26-34); Mean Platelet Volume 11.5 fl (7.4-10.4); Monocytes Absolute Auto 0.9 K/mm3 (0.1-0.6); Monocytes Percent Auto 9.2 % (2.6-8.5); Neutrophils Absolute Auto 5.7 K/mm3 (1.3-6.7); Neutrophils Percent Auto 60.1 % (45.5-73.1); Platelet Count Result 207 k/mm3 (150-375); Red Blood Count 3.86 M/mm3 (4.2-5.4); Red Cell Distribution Width 14.5 % (11.5-14.5); White Blood Count 9.5 K/mm3 (4.5-10.0)
[2021-11-26 06:27] LABS: Anion Gap 5 mmol/L (8-16); Blood Urea Nitrogen 9 mg/dL (7-17); Calcium 8.5 mg/dL (8.4-10.2); Carbon Dioxide 26 mmol/L (22-30); Chloride 109 mmol/L (98-107); Estimated CRCL calculation 44 ml/min; Estimated Glomerular Filt Rate > 60; Glucose 104 mg/dL (65-110); Potassium 3.5 mmol/L (3.4-5.0); Sodium 140 mmol/L (137-145)
[2021-11-26 06:28] LABS: INR 2.1; Prothrombin Time 23.2 Seconds (11.1-14.7)
--- NOTE | 2021-11-26 09:20 | PM.IMPN ---
Progress Note: A&P Assessment and Plan (1) Urinary tract infection: Qualifiers: Hematuria presence: with hematuria Urinary tract infection type: acute cystitis Qualified Code(s): N30.01 - Acute cystitis with hematuria Code(s): N39.0 - Urinary tract infection, site not specified Status: Acute Assessment and Plan: Patient has been on broad spectrum antibiotics since admission. Zosyn and vancomycin were started due to the concern for aspiration pneumonia at the time of admission. First dose of zosyn was given on 11/21/21 at 2344 and completed at 0014. First dose of vancomycin was started on 11/21/21 at 2345 and finished at 0022. These antibiotics have been given at appropriate intervals during the entire hospitalization. While the urinalysis was abnormal, the urine culture states it is mixed genital shar isolated. These superficial bacteria are not indicative of a urinary tract infection and did not give speciation. Patient has no leukocytosis, is afebrile and appears to be back at her baseline keeping in mind she has dementia and is on donepezil and memantine. Patient was awake, alert and oriented to self and location today. She was unable to give the year saying 2004 or 2005 and the month saying May, but this is her baseline. -Will continue zosyn and vancomycin for the aspiration penumonia (2) Altered mental status: Qualifiers: Altered mental status type: unspecified Qualified Code(s): R41.82 - Altered mental status, unspecified Code(s): R41.82 - Altered mental status, unspecified Status: Acute Assessment and Plan: CT head on admission with no acute intracranial findings. ABG without hypercapnia. Initial confusion on presentation was likely due to infection. Lactate normal. Patient appears to be back at her baseline. -Continue donepezil 10 mg po qhs -continue memantine 10 mg po BID (3) Aspiration into lower respiratory tract: Qualifiers: Encounter type: initial encounter Qualified Code(s): T17.800A - Unspecified foreign body in other parts of respiratory tract causing asphyxiation, initial encounter Code(s): T17.800A - Unspecified foreign body in other parts of respiratory tract causing asphyxiation, initial encounter Status: Acute Assessment and Plan: Zosyn and vancomycin started in the ED. CT abdomen and pelvis revealed peribronchial thickening and ground-glass opacities in bilateral lower lobes. 11/22 BCX with no growth so far. Repeat CXR on 11/24/21 showed atelectasis in the left lng base. Mild scarring in the right midlung zone. FURNITURE REMOVALIST saw and MBS swallow was completed showing laryngeal penetration without aspiration. Per FURNITURE REMOVALIST recommendation, diet has been changed to minced & moist - level 5 and mildly thickened liquids - level 2, which patient has tolerated well. RT did not induce sputum on 11/25. -Plan will be for discharge with Augmentin and linezolid as we have been unable to get a sputum culture for a total of 10 days of treatment starting 11/21 (4) GERD (gastroesophageal reflux disease): Code(s): K21.9 - Gastro-esophageal reflux disease without esophagitis Status: Acute Assessment and Plan: Has pantoprazole ordered. Continue pantoprazole. (5) CKD (chronic kidney disease): Code(s): N18.9 - Chronic kidney disease, unspecified Status: Acute Assessment and Plan: Baseline creatinine ranges from 0.7 - 1.00. Creatinine at baseline. Will monitor. -Avoid nephrotoxic agents -Renally dose all medications (6) Atrial fibrillation: Code(s): I48.91 - Unspecified atrial fibrillation Status: Acute Assessment and Plan: Rate controlled and anticoagulated. Anticoagulation was initially held due to supratheraputic INR going from 3.7 on admission and peaking at 4.4. Warfarin was restarted and INR has been within goal INR of 2-3 since 11/25. -Continue warfarin -INR daily -C
[2021-11-26] MEDS: DOCUSATE SODIUM 100 MG CAPSULE PO ×2 (09:42→20:45)
[2021-11-26] MEDS: ACETAMINOPHEN 500 MG TABLET 1000 MG PO ×2 (09:42→17:14)
[2021-11-26] MEDS: polyethylene glycoL 3350 17 GM POWD.PACK PO (09:43)
[2021-11-26] MEDS: CHOLECALCIFEROL 1,000 UNITS TABLET 5000 UNITS PO (09:43)
[2021-11-26] MEDS: ATORVASTATIN 40 MG TABLET PO (09:43)
[2021-11-26] MEDS: OPTI-GEN TAB 1 TABLET PO (09:43)
[2021-11-26] MEDS: PANTOPRAZOLE 40 MG TABLET PO (09:43)
[2021-11-26] MEDS: SENNOSIDES 8.6 MG TABLET PO (09:44)
[2021-11-26] MEDS: LORATADINE 10 MG TABLET PO (09:44)
[2021-11-26] MEDS: MEMANTINE 10 MG TABLET PO ×2 (09:44→20:44)
[2021-11-26] MEDS: DULoxetine HCL 20 MG CAPSULE.DR PO (09:44)
[2021-11-26] MEDS: METOPROLOL TARTRATE 50 MG TAB 100 MG PO ×2 (09:44→21:13)
[2021-11-26] MEDS: TOLNAFTATE 1% POWDER 45 GM BTL 1 APPLIC TOPICAL ×2 (10:09→20:43)
[2021-11-26] MEDS: SODIUM CHLORIDE 0.9% IV 1,000 ML 40 ML IV CONT (17:15)
[2021-11-26] MEDS: WARFARIN (*PBKC) 2.5 MG TABLET PO (17:16)
[2021-11-26] MEDS: MELATONIN 5 MG TABLET PO (20:44)
[2021-11-26] MEDS: DONEPEZIL HCL 10 MG TABLET PO (20:44)
[2021-11-27] VITALS (17 sets, daily range): BP systolic 131–167; BP diastolic 69–103; PULSE 62–82; RESP 16–22; TEMP 35.8–36.7; O2SAT 93–97
[2021-11-27] MEDS: IPRATROPIUM BR 0.02% INH SOLN 0.5 MG/2.5 ML VIAL INHALATION ×6 (00:40→19:42)
[2021-11-27] MEDS: ALBUTEROL SULFATE NEB 2.5 MG/3 ML INH INHALATION ×6 (00:40→19:41)
[2021-11-27] MEDS: SODIUM CHLOR 3% 15 ML NEB (RESPIRATORY THERAPY) 6 ML INHALATION (06:00)
[2021-11-27] MEDS: polyethylene glycoL 3350 17 GM POWD.PACK PO (09:08)
[2021-11-27] MEDS: CHOLECALCIFEROL 1,000 UNITS TABLET 5000 UNITS PO (09:08)
[2021-11-27] MEDS: OPTI-GEN TAB 1 TABLET PO (09:09)
[2021-11-27] MEDS: SENNOSIDES 8.6 MG TABLET PO (09:09)
[2021-11-27] MEDS: METOPROLOL TARTRATE 50 MG TAB 100 MG PO ×2 (09:09→20:18)
[2021-11-27] MEDS: DULoxetine HCL 20 MG CAPSULE.DR PO (09:09)
[2021-11-27] MEDS: ACETAMINOPHEN 500 MG TABLET 1000 MG PO ×3 (09:09→17:28)
[2021-11-27] MEDS: DOCUSATE SODIUM 100 MG CAPSULE PO ×2 (09:09→20:18)
[2021-11-27] MEDS: MEMANTINE 10 MG TABLET PO ×2 (09:09→20:18)
[2021-11-27] MEDS: ATORVASTATIN 40 MG TABLET PO (09:09)
[2021-11-27] MEDS: TOLNAFTATE 1% POWDER 45 GM BTL 1 APPLIC TOPICAL ×2 (09:10→20:18)
[2021-11-27] MEDS: PANTOPRAZOLE 40 MG TABLET PO (09:10)
[2021-11-27] MEDS: LORATADINE 10 MG TABLET PO (09:10)
[2021-11-27 09:12] LABS: INR 2.7; Prothrombin Time 28.1 Seconds (11.1-14.7)
[2021-11-27 10:58] LABS: EDCOVIDSCREEN Negative (Negative)
--- NOTE | 2021-11-27 16:34 | PM.DS ---
DS: Admitting Diagnosis Discharge Date 11/27/21 Admitting Diagnosis Altered Mental Status, Aspiration DS: Discharge Diagnosis Discharge Diagnosis (1) Urinary tract infection: Qualifiers: Hematuria presence: with hematuria Urinary tract infection type: acute cystitis Qualified Code(s): N30.01 - Acute cystitis with hematuria Code(s): N39.0 - Urinary tract infection, site not specified Status: Acute Assessment and Plan: Patient has been on broad spectrum antibiotics since admission. Zosyn and vancomycin were started due to the concern for aspiration pneumonia at the time of admission. First dose of zosyn was given on 11/21/21 at 2344 and completed at 0014. First dose of vancomycin was started on 11/21/21 at 2345 and finished at 0022. These antibiotics have been given at appropriate intervals during the entire hospitalization. While the urinalysis was abnormal, the urine culture states it is mixed genital hsar isolated. These superficial bacteria are not indicative of a urinary tract infection and did not give speciation. Patient has no leukocytosis, is afebrile and appears to be back at her baseline keeping in mind she has dementia and is on donepezil and memantine. Patient was awake, alert and oriented to self and location today. She was unable to give the year saying 2004 or 2005 and the month saying May, but this is her baseline. -On day of discharge patient states name and , which is patient baseline. Daughter and case management are at bedside during rounds. (2) Altered mental status: Qualifiers: Altered mental status type: unspecified Qualified Code(s): R41.82 - Altered mental status, unspecified Code(s): R41.82 - Altered mental status, unspecified Status: Acute Assessment and Plan: CT head on admission with no acute intracranial findings. ABG without hypercapnia. Initial confusion on presentation was likely due to infection. Lactate normal. Patient appears to be back at her baseline. -Continue donepezil 10 mg po qhs -continue memantine 10 mg po BID (3) Aspiration into lower respiratory tract: Qualifiers: Encounter type: initial encounter Qualified Code(s): T17.800A - Unspecified foreign body in other parts of respiratory tract causing asphyxiation, initial encounter Code(s): T17.800A - Unspecified foreign body in other parts of respiratory tract causing asphyxiation, initial encounter Status: Acute Assessment and Plan: Zosyn and vancomycin started in the ED. CT abdomen and pelvis revealed peribronchial thickening and ground-glass opacities in bilateral lower lobes. 11/22 BCX with no growth so far. Repeat CXR on 11/24/21 showed atelectasis in the left lng base. Mild scarring in the right midlung zone. HYDRO EXCAVATION OPERATOR saw and MBS swallow was completed showing laryngeal penetration without aspiration. Per HYDRO EXCAVATION OPERATOR recommendation, diet has been changed to minced & moist - level 5 and mildly thickened liquids - level 2, which patient has tolerated well. RT did not induce sputum on 11/25. -Discharged with 2 days of linezolid and augmentin as patient was unable to produce sputum for culture (4) GERD (gastroesophageal reflux disease): Code(s): K21.9 - Gastro-esophageal reflux disease without esophagitis Status: Acute Assessment and Plan: Has pantoprazole ordered. Continue pantoprazole. (5) CKD (chronic kidney disease): Code(s): N18.9 - Chronic kidney disease, unspecified Status: Acute Assessment and Plan: Baseline creatinine ranges from 0.7 - 1.00. Creatinine at baseline. Will monitor. -Avoid nephrotoxic agents -Renally dose all medications (6) Atrial fibrillation: Code(s): I48.91 - Unspecified atrial fibrillation Status: Acute Assessment and Plan: Rate controlled and anticoagulated. Anticoagulation was initially held due to supratheraputic INR going from 3.7 on admis
--- NOTE | 2021-11-27 17:00 | PC.NURSE ---
vanc dose not given at this time. lab stated unable to get vanc trough due to unable to get stick for blood return. provider notified. since pt is able to d/c, provider stated to just hold this dose.
[2021-11-27] MEDS: SACCHAROMYCES BOULARDII 250 MG CAPSULE PO (17:28)
[2021-11-27] MEDS: WARFARIN (*PBKC) 2.5 MG TABLET PO (17:28)
[2021-11-27] MEDS: DONEPEZIL HCL 10 MG TABLET PO (20:18)
[2021-11-27] MEDS: MELATONIN 5 MG TABLET PO (20:18)
== END 2021-11-27 20:45 | DRG 690 ==
LOC: ANHED 11-22 01:10 → ANH3MEDSUR 11-22 01:11
PROVIDERS: Internal Medicine; Physician Assistant; Admitting Provider Internal Medicine; Emergency Provider Emergency Medicine; Visit Provider Family Medicine
DX: N39.0 Urinary tract infection, site not specified (principal); T17.800A Unspecified foreign body in other parts of respiratory tract causing asphyxiation, initial encounter; Z20.822 Contact with and (suspected) exposure to COVID-19; K21.9 Gastro-esophageal reflux disease without esophagitis; I12.9 Hypertensive chronic kidney disease with stage 1 through stage 4 chronic kidney disease, or unspecified chronic kidney disease; N18.9 Chronic kidney disease, unspecified; I48.91 Unspecified atrial fibrillation; G30.9 Alzheimer's disease, unspecified; F02.80 Dementia in other diseases classified elsewhere, unspecified severity, without behavioral disturbance, psychotic disturbance, mood disturbance, and anxiety; R13.10 Dysphagia, unspecified; K52.9 Noninfective gastroenteritis and colitis, unspecified; K59.00 Constipation, unspecified; D50.9 Iron deficiency anemia, unspecified; E78.5 Hyperlipidemia, unspecified; Z86.73 Personal history of transient ischemic attack (TIA), and cerebral infarction without residual deficits; Z95.2 Presence of prosthetic heart valve; Z79.01 Long term (current) use of anticoagulants
CPT/HCPCS: 36415; 36600; 70450; 71045; 74177; 80048; 80053; 80202; 81001; 82805; 82948; 83605; 83735; 83880; 84484; 85025; 85610; 85730; 87040; 87086; 87088; 87426; 92610; 92611; 93005; 94640; 94667; 94668; 96361; 96365; 96366; 96367; 96375; 99285; A9270; C9803; G0378; J0131; J2405; J2543; J3370; J7030; Q9967; U0003; U0005